=== PATIENT | male | born 1955 | race Caucasian/White ===

== ENCOUNTER → 2017-10-20 | Day surgery (SDC) | payer OTHER ==
[~2017-10-20] VITALS: Ht 182.9 cm; Wt 108.9 kg
[~2017-10-20] MED LIST: CINNAMON500 M1 PO; CO Q-10200 MG PO; DILTIAZEM 24HR180 MG PO; JANUVIA100 M1 PO; LANOXIN125 MCG PO; LIPITOR20 M2 PO; LISINOPRIL10 M1 PO; METFORMIN HCL500 M3 PO; OMEGA 3-6-9 11200 MG PO; PRADAXA150 M1 PO; TOUJEO SOL300 UNIT/1 SC; VITAMIN B-121000 MC3 PO; VITAMIN D1000 UNIT PO
--- NOTE | 2017-10-20 09:56 | Operative Report ---
See Addendum Operative/Inv Procedure Report Surgery Date: 10/20/17 Name of Procedure: Complex cataract extraction lens implantation left eye Pre-Operative Diagnosis: Complex age-related cataract left eye 20/400 vision Post-Operative Diagnosis: Same Estimated Blood Loss: none Surgeon/Donkey Doctor: Jesus Dale MD Anesthesia: local monitored anesthesi Complications: None Operative/Procedure Note Note: The patient was brought to the operating room standard monitoring equipment was attached the patient was prepped and draped in the usual fashion for intraocular surgery. A lid speculum was placed to retract the lids. The case was begun by making 1 partial-thickness corneal relaxing incision at 23. A temporal incision with a 2.4 mm keratome. The eye was stabilized with a Mason ring during this incision. 1 mL of non-preserved lidocaine was introduced into the anterior chamber to provide anesthesia. The anterior chamber was then filled and deepened with viscoelastic. A curvilinear capsulorrhexis was achieved using a 30-gauge needle and is a cystotome and capsulorrhexis was finished using a Utrata forceps. A second or paracentesis incision was made temporally with a 1 mm MVR blade. The lens was then hydrodissected with balanced salt solution and found to be rotatable. The lens was emulsified using phacoemulsification and a modified four-quadrant cracking technique. The residual cortical material was removed using automated irrigation and aspiration and as much of the anterior capsular rim was cleaned as well as possible. The posterior capsule was cleaned first with the automated machine on a low setting and then manually with a Archie squeegee. The capsular bag was deepened with viscoelastic. The lens a Tecnis multifocal ZLBOO 19.0 Diopter placed into the bag under direct visualization and rotated so that the haptics were at 12 and 6:00. Viscoelastic was then removed from the eye by flushing it out and then by automated irrigation and aspiration. The eye was pressurized to a normal tone. 1/10 of a cc of vancomycin solution was introduced into the anterior chamber to provide antibiotic prophylaxis. The wounds were sealed by hydrating the stroma adjacent to them and the eye was left at a proper tone after the wounds were checked and found not to be leaking. The lid speculum was removed from the orbit. Antibiotic and steroid drops were placed on the eye and then the eye was shielded. Monitoring equipment was removed from the patient and the patient was removed from the operative suite to the holding area. The patient tolerated the procedure well and will be seen in the office tomorrow.
== END ==
LOC: STS 01:23
DX: H25.89 Other age-related cataract (principal); E11.9 Type 2 diabetes mellitus without complications; Z79.84 Long term (current) use of oral hypoglycemic drugs; I48.91 Unspecified atrial fibrillation; Z79.01 Long term (current) use of anticoagulants; G47.33 Obstructive sleep apnea (adult) (pediatric)
CPT/HCPCS: J2250; V2632; V2788-GY